=== PATIENT | female | born 1980 | race Caucasian/White ===

== ENCOUNTER 2018-03-07 09:09 | Outpatient (CLI) | payer MEDICARE, OTHER ==
--- NOTE | 2018-03-07 09:56 | Diagnostic Imaging Report ---
RODRIGO BARBOSA [facility] [address] [address] Report Submission Date: Mar 07, 2018 9:44:27 AM CDT Patient Study Name: MINDY GUTIERREZ Date: Mar 07, 2018 9:16:36 AM CDT Modality Type: DX Gender: F Description: UPPER EXTREMITY : 76 Institution: [facility] Physician: RODRIGO BARBOSA Right 3rd finger History: Pain and swelling status post injury Three views of the right 3rd finger demonstrate a subtle and nondisplaced fracture volarly at the base of the 3rd middle phalanx. There is soft tissue swelling of IP joint. Impression: Soft tissue swelling of the 3rd PIP joint. Noted only on the lateral radiograph, there is an apparent subtle but nondisplaced fracture volarly at the base of the middle phalanx. Electronically signed on Mar 07, 2018 9:44:27 AM CDT by: Janette PIMENTEL
== END 2018-03-07 09:11 ==
LOC: RAD 09:09
PROVIDERS: ATTEND Family Medicine
DX: M79.644 Pain in right finger(s) (principal)
CPT/HCPCS: 73140

== ENCOUNTER 2018-04-05 11:04 | Outpatient (CLI) | payer MEDICARE, OTHER ==
--- NOTE | 2018-04-05 19:54 | Diagnostic Imaging Report ---
RODRIGO BARBOSA [facility] [address] [facility] [address] [address] Report Submission Date: Apr 05, 2018 11:40:38 AM OFFICER CAPTAIN Patient Study Name: MINDY GUTIERREZ Date: Apr 05, 2018 11:10:53 AM OFFICER CAPTAIN Modality Type: DX Gender: F Description: SPINE : 76 Institution: [facility] Physician: RODRIGO BARBOSA Cervical spine History: Neck pain after wrestling with her son AP, lateral, odontoid and swimmer's views of the cervical spine were obtained which demonstrate fusion of the C5 and 6 vertebral bodies. Otherwise, vertebral body height and intervertebral disc space height is maintained. Alignment is normal. Spinous processes are intact. The dens is intact. The lateral masses of C1 and C2 are aligned. The patient is largely edentulous. 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 Otherwise, no osseous abnormality. Electronically signed on Apr 05, 2018 11:40:38 AM OFFICER CAPTAIN by: Janette PIMENTEL
== END 2018-04-05 11:05 ==
LOC: RAD 11:04
PROVIDERS: ATTEND Family Medicine
DX: S19.80XA Other specified injuries of unspecified part of neck, initial encounter (principal); M43.22 Fusion of spine, cervical region; Y93.72 Activity, wrestling
CPT/HCPCS: 72040

== ENCOUNTER 2018-07-18 20:45 | Emergency (ER) | payer MEDICARE, OTHER ==
[2018-07-18] MEDS ORDERED: ONDANSETRON HCL/PF 4 MG/ 2ML VIAL IVP ONE (21:05)
[2018-07-18] MEDS ORDERED: KETOROLAC TROMETHAMINE 30 MG/1ML VIAL IV ONE (21:05)
[2018-07-18 22:26] LABS: APPEARANCE,URINE CLEAR (CLEAR); COLOR,URINE YELLOW (YELLOW); OCCULT BLOOD,URINE TRACE (NEGATIVE)
[2018-07-18 22:27] LABS: PH URINE 5.5 (5.0 - 8.0); UROBILINOGEN URINE 0.2 Eu (0.2-1.0)
[2018-07-18 22:30] LABS: MEAN CORPUSCULAR HEMOGLOBIN 28.9 pg (28.0-34.0)
[2018-07-18 22:31] LABS: BASOPHILS % 0.6 (0.0-1.5); EOSINOPHILS % 2.7 % (0.0-6.8); MONOCYTES % 3.8 % (0.0-11.0); NEUTROPHILS # 7.1 # k/uL (1.4-7.7)
[2018-07-18 22:40] LABS: eGFR (Non-African) > 60
[2018-07-18] MEDS ORDERED: fentaNYL CITRATE/PF 100 MCG/2 ML INJ. IV ONE (23:23)
[2018-07-18 23:34] VITALS: BP 103/55
--- NOTE | 2018-07-18 23:34 | ED Physician Documentation ---
Abdominal Pain - HISTORIAN Historian: patient - HPI Stated Complaint: abdominal pain Chief Complaint: Abdominal Pain Additonal Information: Patient is a 37-year-old female that presents to the ER with c/o abdominal pain that started around 2 p.m. today with sharp, stabbing, cramping pain. She states that she has had several normal BMs today. No nausea but started having dry heaves on her way to the ER. Her last menstrual period was 06/27/18. Onset: hours Duration: waxing, waning, gradual Timing: still present Context: denies: out of country travel, bad food Severity: moderate Quality: pain, cramping, sharp, stabbing Associated Symptoms: nausea, vomiting (dry heaves) Exacerbated by: movements Relieved by: remaining still Further Comments: no - ROS CONST: no problems GI/: none CVS/RESP: none LNMP: 06/27/18 EYES/ENT: none MS/SKIN/LYMPH: none NEURO/PSYCH: none - SOCIAL HX Smoking History: greater than 1 pack/day Alcohol Use: none Drug Use: none - FAMILY HX Family History: no significant history - PAST HX Past History: bladder infection Ischemic Bowel Risk Factors: none Other History: ovarian cyst(s), other (orthopedic surgeries (back, cervical, shoulder)) Surgeries/Procedures: appendectomy, cholecystectomy, other (left fallopian tube removed) Home Medications: Ambulatory Orders Medication Instructions Recorded Cyclobenzaprine HCl [Flexeril] 1 tab PO TID PRN 07/18/18 Tramadol HCl [Ultram] 1 tab PO 6XDAY 07/18/18 Allergies/Adverse Reactions: Allergies Allergy/AdvReac Type Severity Reaction Status Date / Time Penicillins Allergy Hives Verified 07/18/18 21:31 morphine AdvReac Nausea/Vomi Verified 07/18/18 21:31 ting - VITAL SIGNS Vital Signs: Vital Signs Temp Pulse Resp BP Pulse Ox 98 F 67 16 122/57 99 07/18/18 20:45 07/18/18 23:04 07/18/18 23:04 07/18/18 23:04 07/18/18 23:04 Progress - Progress Progress: 23:25 called and spoke to Dr. Barreto with Surgery at the [facility]- She stated there was no concern for a 2cm collapsing cyst of the right ovary. She stated that no surgical intervention or follow-up was needed and was probably contributed to menses/ovulation. Explained consult with patient and spouse and they voiced understanding. ED Results Lab/Radiology - Lab Results Lab Results: Lab Results 07/18/18 07/18/18 07/18/18 22:15 22:15 22:15 WBC 9.90 K/ul K/ul (4.00-12.00) RBC 4.87 M/ul M/ul (3.90-5.20) Hgb 14.1 g/dL g/dL (12.0-16.0) Hct 41.9 % % (34.5-46.5) MCV 86.0 fl fl (80.0-100.0) MCH 28.9 pg pg (28.0-34.0) MCHC 33.6 g/dL g/dL (30.0-36.0) RDW 13.7 % % (11.3-14.3) Plt Count 306 K/mm3 K/mm3 (130-400) Neut % (Auto) 72.0 % % (39.0-79.0) Lymph % (Auto) 20.9 % % (16.0-50.0) [place] % (Auto) 3.8 % % (0.0-11.0) Eos % (Auto) 2.7 % % (0.0-6.8) Baso % (Auto) 0.6 (0.0-1.5) Neut # (Auto) 7.1 # k/uL # k/uL (1.4-7.7) Lymph # (Auto) 2.1 # k/uL # k/uL (0.6-4.0) [place] # (Auto) 0.4 # k/uL # k/uL (0.0-0.9) Eos # (Auto) 0.3 # k/uL # k/uL (0.0-0.6) Baso # (Auto) 0.1 # k/uL # k/uL (0.0-0.5) Sodium 137 mmol/L mmol/L (136-145) Potassium 3.8 mmol/L mmol/L (3.5-5.1) Chloride 106 mmol/L mmol/L (98-107) Carbon Dioxide 23 mmol/L mmol/L (22-30) BUN 11 mg/dL mg/dL (7-17) Creatinine 0.75 mg/dL mg/dL (0.52-1.04) Estimated Creat Clear 220 Est GFR ( Amer) > 60 (60 - ) Est GFR (Non-Af Amer) > 60 (60 - ) Glucose 102 mg/dL mg/dL (74-106) Calcium 9.2 mg/dL mg/dL (8.4-10.2) Total Bilirubin 0.4 mg/dL mg/dL (0.2-1.3) AST 25 U/L U/L (15-46) ALT 15 U/L U/L (13-69) Alkaline Phosphatase 85 U/L U/L (38-126) Total Protein 7.3 g/dL g/dL (6.3-8.2) Albumin 4.6 g/dL g/dL (3.5-5.0) Lipase 62 U/L U/L (23-300) Urine Color Urine Appearance Urine pH Ur Specific [place] Urine Protein Urine Ketones Urine Occult Blood Urine Nitrite Urine Bilirubin Urine Urobilinogen Ur Leukocyte Esterase Urine Glucose Urine HCG, Qual 07/18/18 07/18/18 21:55 21:55 WBC RBC Hgb Hct MCV MCH MCHC RDW Plt Count Neut % (Auto) Lymph % (Auto) [place] % (Auto) Eos % (Auto) Baso % (Auto) Neut # (Auto) Lymph # (Auto) [place] # (Auto) Eos # (Auto) Baso # (Auto) Sodium Potassium Chloride Carbon Dioxide BUN Creatinine Estimated Creat Clear Est GFR ( Amer) Est GFR (Non-Af Amer) Glucose Calcium Total Bilirubin AST ALT Alkaline Phosphatase Total Protein Albumin Lipase Urine Color Yellow (YELLOW) Urine Appearance Clear (CLEAR) Urine pH 5.5 (5.0 - 8.0) Ur Specific [place] >=1.030 H (1.010-1.030) Urine Protein Negative mg/dL mg/dL (NEGATIVE) Urine Ketones Negative mg/dL mg/dL (NEGATIVE) Urine Occult Blood Trace (NEGATIVE) Urine Nitrite Negative (NEGATIVE) Urine Bilirubin Negative (NEGATIVE) Urine Urobilinogen 0.2 Eu Eu (0.2-1.0) Ur Leukocyte Esterase Trace H (NEGATIVE) Urine Glucose Negative mg/dL mg/dL (NEGATIVE) Urine HCG, Qual Negative (NEGATIVE) - Radiology Radiology Impressions: CT abdomen and pelvis with contrast Clinical history: Severe abdominal pain. Technique: CT of the abdomen and pelvis is performed with intravenous infusion of contrast. Sagittal and coronal reconstructions were performed by the technologist Findings: Visualized lung bases are clear. Liver is diffusely hypodense consistent with steatosis. The gallbladder is surgically absent. Spleen demonstrates normal attenuation without focal defect. There is no pancreatic or adrenal abnormality. The kidneys demonstrate symmetric enhancement. There is no retroperitoneal mass or significant adenopathy. Appendix is surgically absent. Gas and stool are present throughout the colon. Uterus and adnexal structures are within normal limits with bilateral ovarian follicles. There is no free fluid in the pelvis. There is a 2 cm collapsing cyst in the right ovary Impression: 1. 2 cm collapsing cyst in the right ovary. 2. Postoperative changes. 3. Hepatic steatosis. Electronically signed on Jul 18, 2018 11:11:13 PM CDT by: Ramos Glover - Orders Orders: ED Orders Category Date Time Status Place IV Lock 1T Care 07/18/18 20:[address] ABD & PELVIS W/ CON Stat Exams 07/18/18 Taken CBC/PLATELET/DIFF Routine Lab 07/18/18 22:15 Completed CMP Routine Lab 07/18/18 22:15 Completed LIPASE Stat Lab 07/18/18 22:15 Completed UA MACRO DIP ONLY Routine Lab 07/18/18 21:55 Completed URINE HCG Stat Lab 07/18/18 21:55 Completed Ketorolac Tromethamine [Toradol] Med 07/18/18 21:05 Discontinued 30 mg IV NOW ONE Ondansetron HCl/Pf [Zofran] Med 07/18/18 21:05 Discontinued 4 mg IVP NOW ONE fentaNYL CITRATE/PF [Sublimaze] Med 07/18/18 23:23 Once 50 mcg IV NOW ONE Abdominal Pain Physical Exam - Physical Exam General Appearance: alert, moderate distress EENT: eye inspection normal, ENT inspection normal, pharynx normal, SONALI NECK: normal inspection, supple RESPIRATORY: no resp distress, breath sounds normal CVS: reg rate & rhythm, heart sounds normal, equal pulses, no murmur ABDOMEN: soft, normal bowel sounds, tenderness BACK: normal inspection SKIN: warm/dry, normal color EXTREMITIES: non-tender, normal range of motion NEURO: oriented X3, CN's nml as tested, motor nml, sensation nml, mood/affect nml, cognition normal Vital Signs: Vital Signs Temp Pulse Resp BP Pulse Ox 98 F 67 16 122/57 99 07/18/18 20:45 07/18/18 23:04 07/18/18 23:04 07/18/18 23:04 07/18/18 23:04 Discharge Clincal Impression: Ovarian cyst Referrals: Héctor Roe MD [Primary Care Provider] - 2 Days Additional Instructions: Take Tramadol at home as needed for pain May take ibuprofen as needed (600mg every 6-8 hours) Increase fluid intake Follow up with primary care provider as needed (has appointment tomorrow) Condition: Good Disposition: 01 HOME, SELF-CARE Decision to Admit: NO Decision Time: 23:48
[2018-07-18] MEDS ORDERED: IBUPROFEN 200 MG TABLET PO ONE (23:36)
--- NOTE | 2018-07-19 06:16 | Diagnostic Imaging Report ---
MEGAN EMERSON [facility] [address] [facility] [address] [place], [place]. [address] Report Submission Date: Jul 18, 2018 11:11:13 PM CDT Patient Study Name: MINDY GUTIERREZ Date: Jul 18, 2018 10:45:08 PM CDT Modality Type: CT\SR Gender: F Description: CT ABD PELVIS W/ CON : 76 Institution: [facility] Physician: MEGAN EMERSON CT abdomen and pelvis with contrast Clinical history: Severe abdominal pain. Technique: CT of the abdomen and pelvis is performed with intravenous infusion of contrast. Sagittal and coronal reconstructions were performed by the technologist Findings: Visualized lung bases are clear. Liver is diffusely hypodense consistent with steatosis. The gallbladder is surgically absent. Spleen demonstrates normal attenuation without focal defect. There is no pancreatic or adrenal abnormality. The kidneys demonstrate symmetric enhancement. There is no retroperitoneal mass or significant adenopathy. Appendix is surgically absent. Gas and stool are present throughout the colon. Uterus and adnexal structures are within normal limits with bilateral ovarian follicles. There is no free fluid in the pelvis. There is a 2 cm collapsing cyst in the right ovary Impression: 1. 2 cm collapsing cyst in the right ovary. 2. Postoperative changes. 3. Hepatic steatosis. Electronically signed on Jul 18, 2018 11:11:13 PM CDT by: Ramos PIMENTEL
== END 2018-07-18 23:50 | disposition home or self-care (01) ==
LOC: ED 20:45
DX: N83.291 Other ovarian cyst, right side (principal)
CPT/HCPCS: 36415; 74177; 80053; 81002; 81025; 83690; 85025; 96374; 96375; 99284; J1885; J2405; Q9967; S1016